=== PATIENT | male | born 1940 | race Caucasian/White ===

== ENCOUNTER 2020-06-01 07:52 | Outpatient (CLI) | payer OTHER, SELFPAY ==
[2020-06-01 08:40] LABS: Basophils Percent Auto 0.2 % (0.2-1.2); Eosinophils Absolute Auto 0.1 K/mm3 (0-0.3); Eosinophils Percent Auto 1.8 % (0-4.4); Hematocrit 37.5 % (42.0-52.0); Hemoglobin 12.2 g/dL (14.0-18.0); Immature Granulocyte Absolute 0.01 K/mm3 (0.00-0.031); Immature Granulocyte Percent A 0.2 % (0-0.5); Lymphocytes Absolute Auto 1.21 K/mm3 (0.9-3.2); Lymphocytes Percent Auto 24.2 % (18.3-44.2); Mean Corpuscular HGB Conc 32.5 g/dl (32-36); Mean Corpuscular Hemoglobin 30.9 pg (26-34); Mean Corpuscular Volume 94.9 fl (80-100); Mean Platelet Volume 9.8 fl (7.4-10.4); Monocytes Absolute Auto 0.5 K/mm3 (0.1-0.6); Neutrophils Absolute Auto 3.2 K/mm3 (1.3-6.7); Neutrophils Percent Auto 64.6 % (45.5-73.1); Platelet Count Result 277 k/mm3 (150-375); Red Blood Count 3.95 M/mm3 (4.6-6.20); Red Cell Distribution Width 11.9 % (11.5-14.5)
[2020-06-01 09:25] LABS: Alanine Aminotransferase 10 U/L (4-50); Albumin Level 4.4 g/dL (3.5-5.1); Alkaline Phosphatase 35 U/L (38-126); Anion Gap 8 mmol/L (8-16); Aspartate Amino Transferase 22 U/L (17-59); Bilirubin,Total 0.4 mg/dL (0.2-1.3); Blood Urea Nitrogen 25 mg/dL (9-20); Calcium 9.8 mg/dL (8.4-10.2); Carbon Dioxide 28 mmol/L (22-30); Chloride 103 mmol/L (98-107); Cholesterol 145 mg/dL (0-200); Estimated Glomerular Filt Rate 39; Glucose 98 mg/dL (75-110); HDL Direct 32 mg/dL; Potassium 4.6 mmol/L (3.4-5.0); Sodium 139 mmol/L (137-145); Triglycerides 120 mg/dL (<150)
[2020-06-01 09:48] LABS: LDL Cholesterol Direct 92 mg/dL
[2020-06-07 10:55] LABS: Vitamin D 1,25 (OH)2 Total 49 pg/mL (18-72); Vitamin D2 1,25 (OH)2 <8 pg/mL; Vitamin D3 1,25 (OH)2 49 pg/mL
== END 2020-06-01 07:53 | disposition home or self-care (01) ==
DX: I10 Essential (primary) hypertension (principal); E78.1 Pure hyperglyceridemia; E55.9 Vitamin D deficiency, unspecified
CPT/HCPCS: 36415; 80053; 80061; 82306; 82652; 84443; 85025

== ENCOUNTER 2020-11-29 09:10 | Outpatient (CLI) | payer OTHER, SELFPAY ==
[2020-11-29 09:26] LABS: Basophils Percent Auto 0.2 % (0.2-1.2); Eosinophils Absolute Auto 0.1 K/mm3 (0-0.3); Eosinophils Percent Auto 1.8 % (0-4.4); Hematocrit 39.9 % (42.0-52.0); Hemoglobin 13.1 g/dL (14.0-18.0); Immature Granulocyte Absolute 0.01 K/mm3 (0.00-0.031); Immature Granulocyte Percent A 0.2 % (0-0.5); Lymphocytes Absolute Auto 1.31 K/mm3 (0.9-3.2); Lymphocytes Percent Auto 23.2 % (18.3-44.2); Mean Corpuscular HGB Conc 32.8 g/dl (32-36); Mean Corpuscular Hemoglobin 30.9 pg (26-34); Mean Corpuscular Volume 94.1 fl (80-100); Mean Platelet Volume 9.4 fl (7.4-10.4); Monocytes Absolute Auto 0.5 K/mm3 (0.1-0.6); Monocytes Percent Auto 8.5 % (2.6-8.5); Neutrophils Absolute Auto 3.7 K/mm3 (1.3-6.7); Neutrophils Percent Auto 66.1 % (45.5-73.1); Platelet Count Result 235 k/mm3 (150-375); Red Blood Count 4.24 M/mm3 (4.6-6.20); Red Cell Distribution Width 12.2 % (11.5-14.5); White Blood Count 5.6 K/mm3 (4.5-10.0)
[2020-11-29 09:35] LABS: Alanine Aminotransferase 11 U/L (4-50); Albumin Level 4.7 g/dL (3.5-5.1); Alkaline Phosphatase 30 U/L (38-126); Anion Gap 7 mmol/L (8-16); Aspartate Amino Transferase 29 U/L (17-59); Bilirubin,Total 0.6 mg/dL (0.2-1.3); Blood Urea Nitrogen 16 mg/dL (9-20); Calcium 10.1 mg/dL (8.4-10.2); Carbon Dioxide 28 mmol/L (22-30); Chloride 103 mmol/L (98-107); Cholesterol 156 mg/dL (0-200); Estimated Glomerular Filt Rate 39; Glucose 99 mg/dL (75-110); HDL Direct 37 mg/dL; Potassium 4.7 mmol/L (3.4-5.0); Sodium 138 mmol/L (137-145); Triglycerides 127 mg/dL (<150)
[2020-11-29 09:46] LABS: LDL Cholesterol Direct 98 mg/dL
[2020-12-03 00:15] LABS: Vitamin D 1,25 (OH)2 Total 48 pg/mL (18-72); Vitamin D2 1,25 (OH)2 <8 pg/mL; Vitamin D3 1,25 (OH)2 48 pg/mL
== END 2020-11-29 09:11 | disposition home or self-care (01) ==
DX: E78.1 Pure hyperglyceridemia (principal); E55.9 Vitamin D deficiency, unspecified; I10 Essential (primary) hypertension
CPT/HCPCS: 36415; 80053; 80061; 82652; 84443; 85025

== ENCOUNTER 2021-12-21 10:07 | Outpatient (CLI) | payer OTHER, SELFPAY ==
--- NOTE | ~2021-12-21 | US_ITS ---
US renal BI 12/21/2021 10:50 Procedure: Realtime transabdominal ultrasound of the kidneys and bladder. Indication: Chronic kidney disease Comparison: No prior studies for comparison. Findings: Renal echotexture is normal bilaterally without hydronephrosis, contour deforming mass or r enal calculus. The right kidney measures 10.8 cm and left kidney measures 11.4 cm. Bladder within no rmal limits. There is a cyst in the upper pole of the right kidney measuring up to 10 cm. Incidental note is made of gallstones. Impression: 1: Right renal cyst measuring 10 cm. 2: Cholelithiasis. Reviewed, dictated and finalized at location A. Impression: 1: Right renal cyst measuring 10 cm. 2: Cholelithiasis.
== END 2021-12-21 10:08 | disposition home or self-care (01) ==
PROVIDERS: PCP Internal Medicine; Visit Provider Internal Medicine Nephrology
DX: N18.32 Chronic kidney disease, stage 3b (principal); K80.20 Calculus of gallbladder without cholecystitis without obstruction; N28.1 Cyst of kidney, acquired
CPT/HCPCS: 76775

== ENCOUNTER 2022-10-16 14:39 | Outpatient (CLI) | payer OTHER, SELFPAY ==
[2022-10-16 15:44] LABS: Hematocrit 38.6 % (42.0-52.0); Hemoglobin 12.6 g/dL (14.0-18.0); Mean Corpuscular HGB Conc 32.6 g/dl (32-36); Mean Corpuscular Volume 95.1 fl (80-100); Mean Platelet Volume 10.3 fl (7.4-10.4); Platelet Count Result 214 k/mm3 (150-375); Red Blood Count 4.06 M/mm3 (4.6-6.20); Red Cell Distribution Width 12.1 % (11.5-14.5)
[2022-10-16 15:54] LABS: Albumin Level 4.5 g/dL (3.5-5.1); Anion Gap 5 mmol/L (8-16); Blood Urea Nitrogen 23 mg/dL (9-20); Calcium 9.5 mg/dL (8.4-10.2); Carbon Dioxide 29 mmol/L (22-30); Chloride 103 mmol/L (98-107); Estimated Glomerular Filt Rate 34; Glucose 121 mg/dL (65-110); Phosphorus 3.4 mg/dL (2.5-4.5); Potassium 4.6 mmol/L (3.4-5.0); Sodium 137 mmol/L (137-145)
[2022-10-16 16:06] LABS: Parathyroid Intact 64.3 pg/mL (7.5-53.5)
[2022-10-16 17:07] LABS: Total Protein Urine Random 29 mg/dL
== END 2022-10-16 14:40 | disposition home or self-care (01) ==
PROVIDERS: PCP Internal Medicine; Visit Provider Internal Medicine Nephrology
DX: N18.32 Chronic kidney disease, stage 3b (principal)
CPT/HCPCS: 36415; 80069; 82570; 83970; 84156; 85027

== ENCOUNTER 2023-04-24 08:32 | Outpatient (CLI) | payer OTHER, SELFPAY ==
[2023-04-24 09:27] LABS: Albumin Level 4.3 g/dL (3.5-5.1); Anion Gap 8 mmol/L (8-16); Blood Urea Nitrogen 18 mg/dL (9-20); Calcium 9.4 mg/dL (8.4-10.2); Carbon Dioxide 26 mmol/L (22-30); Chloride 104 mmol/L (98-107); Estimated Glomerular Filt Rate 36; Glucose 98 mg/dL (65-110); Phosphorus 2.8 mg/dL (2.5-4.5); Potassium 4.6 mmol/L (3.4-5.0); Sodium 138 mmol/L (137-145)
[2023-04-24 09:39] LABS: Parathyroid Intact 61.3 pg/mL (7.5-53.5)
[2023-04-24 09:42] LABS: Creatinine Urine 84.9 mg/dL; Total Protein Urine Random 15 mg/dL; Ur Ttl Prot Creatinine Ratio 0.18 mg/mg (0-0.20)
[2023-04-24 10:09] LABS: Vitamin D 25 Hydroxy 62.7 ng/mL
== END 2023-04-24 08:33 | disposition home or self-care (01) ==
PROVIDERS: PCP Internal Medicine; Visit Provider Internal Medicine Nephrology
DX: N18.32 Chronic kidney disease, stage 3b (principal); E21.1 Secondary hyperparathyroidism, not elsewhere classified
CPT/HCPCS: 36415; 80069; 82306; 82570; 83970; 84156

== ENCOUNTER 2023-10-19 09:29 | Outpatient (CLI) | payer OTHER, SELFPAY ==
[2023-10-19 13:32] LABS: Basophils Percent Auto 0.2 % (0.2-1.2); Eosinophils Percent Auto 0.7 % (0-4.4); Hematocrit 42.4 % (42.0-52.0); Hemoglobin 13.6 g/dL (14.0-18.0); Immature Granulocyte Absolute 0.01 K/mm3 (0.00-0.031); Immature Granulocyte Percent A 0.2 % (0-0.5); Lymphocytes Absolute Auto 0.95 K/mm3 (0.9-3.2); Lymphocytes Percent Auto 17.7 % (18.3-44.2); Mean Corpuscular HGB Conc 32.1 g/dl (32-36); Mean Corpuscular Hemoglobin 31.2 pg (26-34); Mean Corpuscular Volume 97.2 fl (80-100); Mean Platelet Volume 10.7 fl (7.4-10.4); Monocytes Absolute Auto 0.5 K/mm3 (0.1-0.6); Monocytes Percent Auto 8.7 % (2.6-8.5); Neutrophils Absolute Auto 3.9 K/mm3 (1.3-6.7); Neutrophils Percent Auto 72.5 % (45.5-73.1); Platelet Count Result 231 k/mm3 (150-375); Red Blood Count 4.36 M/mm3 (4.6-6.20); Red Cell Distribution Width 12.3 % (11.5-14.5); White Blood Count 5.4 K/mm3 (4.5-10.0)
[2023-10-19 13:51] LABS: Alanine Aminotransferase 15 U/L (6-50); Albumin Level 4.4 g/dL (3.5-5.1); Albumin Level 4.6 g/dL (3.5-5.1); Alkaline Phosphatase 39 U/L (38-126); Anion Gap 6 mmol/L (4-12); Anion Gap 7 mmol/L (4-12); Aspartate Amino Transferase 41 U/L (17-59); Bilirubin,Total 1.1 mg/dL (0.2-1.3); Blood Urea Nitrogen 22 mg/dL (9-20); Calcium 10.1 mg/dL (8.4-10.2); Carbon Dioxide 27 mmol/L (22-30); Chloride 105 mmol/L (98-107); Chloride 106 mmol/L (98-107); Cholesterol 137 mg/dL (0-200); Estimated Glomerular Filt Rate 34; Estimated Glomerular Filt Rate 36; Glucose 95 mg/dL (65-110); Glucose 96 mg/dL (65-110); HDL Direct 38 mg/dL; Phosphorus 2.6 mg/dL (2.5-4.5); Potassium 4.6 mmol/L (3.4-5.0); Sodium 139 mmol/L (137-145); Triglycerides 80 mg/dL (<150)
[2023-10-19 14:02] LABS: LDL Cholesterol Direct 87 mg/dL
[2023-10-19 14:04] LABS: Potassium 4.6 mmol/L (3.4-5.0)
[2023-10-19 14:12] LABS: Creatinine Urine 135.2 mg/dL; Total Protein Urine Random 27 mg/dL
== END 2023-10-19 09:30 | disposition home or self-care (01) ==
LOC: ANHGOSHLAB 09:30
PROVIDERS: Internal Medicine Nephrology; Nurse Practitioner; PCP Internal Medicine; Visit Provider Internal Medicine
DX: E21.1 Secondary hyperparathyroidism, not elsewhere classified (principal); N18.32 Chronic kidney disease, stage 3b; K59.00 Constipation, unspecified; E78.5 Hyperlipidemia, unspecified
CPT/HCPCS: 36415; 80053; 80061; 80069; 82570; 84156; 85025

== ENCOUNTER 2024-02-08 08:50 | Outpatient (CLI) | payer OTHER, SELFPAY ==
[2024-02-08 18:44] LABS: Basophils Percent Auto 0.2 % (0.2-1.2); Eosinophils Absolute Auto 0.1 K/mm3 (0-0.3); Eosinophils Percent Auto 1.2 % (0-4.4); Hemoglobin 12.3 g/dL (14.0-18.0); Immature Granulocyte Absolute 0.01 K/mm3 (0.00-0.031); Immature Granulocyte Percent A 0.2 % (0-0.5); Lymphocytes Absolute Auto 0.98 K/mm3 (0.9-3.2); Lymphocytes Percent Auto 19.4 % (18.3-44.2); Mean Corpuscular HGB Conc 31.5 g/dl (32-36); Mean Corpuscular Hemoglobin 31.1 pg (26-34); Mean Corpuscular Volume 98.5 fl (80-100); Mean Platelet Volume 10.8 fl (7.4-10.4); Monocytes Absolute Auto 0.4 K/mm3 (0.1-0.6); Monocytes Percent Auto 8.3 % (2.6-8.5); Neutrophils Absolute Auto 3.6 K/mm3 (1.3-6.7); Neutrophils Percent Auto 70.7 % (45.5-73.1); Platelet Count Result 231 k/mm3 (150-375); Red Blood Count 3.96 M/mm3 (4.6-6.20); Red Cell Distribution Width 11.9 % (11.5-14.5); White Blood Count 5.1 K/mm3 (4.5-10.0)
[2024-02-08 19:01] LABS: Total Protein Urine Random 12 mg/dL; Ur Ttl Prot Creatinine Ratio 0.18 mg/mg (0-0.20)
[2024-02-08 19:04] LABS: Alanine Aminotransferase 10 U/L (6-50); Albumin Level 4.4 g/dL (3.5-5.1); Alkaline Phosphatase 37 U/L (38-126); Anion Gap 9 mmol/L (4-12); Aspartate Amino Transferase 33 U/L (17-59); Bilirubin,Total 0.8 mg/dL (0.2-1.3); Blood Urea Nitrogen 23 mg/dL (9-20); Calcium 9.9 mg/dL (8.4-10.2); Carbon Dioxide 27 mmol/L (22-30); Chloride 101 mmol/L (98-107); Cholesterol 128 mg/dL (0-200); Estimated Glomerular Filt Rate 36; Glucose 92 mg/dL (65-110); HDL Direct 38 mg/dL; Magnesium 1.8 mg/dL (1.6-2.3); Potassium 4.8 mmol/L (3.4-5.0); Sodium 137 mmol/L (137-145); Triglycerides 74 mg/dL (<150)
[2024-02-08 19:11] LABS: Parathyroid Intact 47.3 pg/mL (7.5-53.5)
[2024-02-08 19:15] LABS: LDL Cholesterol Direct 80 mg/dL
[2024-02-08 19:23] LABS: Vitamin D 25 Hydroxy 54.8 ng/mL
== END 2024-02-08 08:51 | disposition home or self-care (01) ==
PROVIDERS: Clinical Nurse Specialist; Internal Medicine Nephrology; PCP Internal Medicine; Visit Provider Nurse Practitioner
DX: E78.5 Hyperlipidemia, unspecified (principal); N18.32 Chronic kidney disease, stage 3b; E21.1 Secondary hyperparathyroidism, not elsewhere classified; I48.91 Unspecified atrial fibrillation
CPT/HCPCS: 36415; 80053; 80061; 82306; 82570; 83735; 83970; 84156; 84443; 85025

== ENCOUNTER 2024-03-19 08:51 | Outpatient (CLI) | payer OTHER, SELFPAY ==
--- NOTE | 2024-03-19 09:18 | ECHO_ITS ---
Patient Info Name: Dhruv Dugan Age: 84 years : 1940 Gender: Male Ht: 72 in Wt: 220 lbs BSA: 2.27 m2 HR: 69 bpm BP: 142 / 74 mmHg Heart Rhythm: Atrial Fibrillation Technical Quality: Good Exam Date: 03/19/2024 9:28 AM Exam Location: Echo Lab Patient Status: Outpatient Admit Date: 03/19/2024 Staff Ordering Physician: Fabienne Mcguire Office Support Specialist: Jessica Long RDCS Attending Provider: Fabienne Mcguire Referring Physician: Maynor SOFIA; Exam Type: CA echo doppler color flow Study Info Indications - Afib R55 - Syncope and collapse Complete two-dimensional, color flow and Doppler transthoracic echocardiogram is performed. Summary 1. Complete two-dimensional, color flow and Doppler transthoracic echocardiogram is performed. 2. Left ventricular chamber dimension is normal. 3. Left ventricular systolic function is normal, estimated at 60-65%. 4. The left ventricular diastolic function is abnormal. 5. E/e' 10 is mildly elevated. 6. Atrial fibrillation. 7. Left atrial chamber dimension is moderately enlarged. 8. Right atrial chamber dimension is moderately enlarged. 9. There is moderate aortic valve sclerosis. 10. There is mild mitral valve regurgitation. 11. There is mild tricuspid valve regurgitation. 12. No pulmonary hypertension, estimated pulmonary arterial systolic pressure is 36 mmHg. 13. There is trace pulmonic regurgitation. Left Ventricle E/e' 10 is mildly elevated. Left ventricular chamber dimension is normal. Left ventricular systolic function is normal, estimated at 60-65%. The left ventricular diastolic function is abnormal. Atrial fibrillation. Right Ventricle Right ventricular systolic function is normal and with normal TAPSE 1.9 cm. Right ventricular chamber dimension is normal. Left Atria Left atrial chamber dimension is moderately enlarged. Right Atria Right atrial chamber dimension is moderately enlarged. Aortic Valve The aortic valve is trileaflet. There is moderate aortic valve sclerosis. There is no aortic valve stenosis. There is no aortic valve regurgitation. Pulmonic Valve There is trace pulmonic regurgitation. Mitral Valve There is no mitral valve stenosis. There is mild mitral valve regurgitation. Tricuspid Valve There is mild tricuspid valve regurgitation. No pulmonary hypertension, estimated pulmonary arterial systolic pressure is 36 mmHg. Pericardium/Pleural There is no pericardial effusion. Inferior Vena Cava Normal inferior vena cava with >50% collapse upon inspiration consistent with normal right atrial pressure, 5 mmHg. Aorta The aortic root size at the sinus of Valsalva is normal. Left Ventricular Outflow Tract Name Value Normal LVOT 2D LVOT Diameter 2.1 cm LVOT Doppler LVOT Peak Gradient 2 mmHg LVOT Mean Gradient 1 mmHg LVOT VTI 16 cm LVOT VTI/AV VTI Ratio 0.6 LVOT Stroke Volume 55 ml LVOT CO 2.9 l/min LVOT CI 1.3 l/min/m2 Pulmonic Valve
--- NOTE | 2024-04-03 16:03 | WPDHOLTEREM ---
Holter/Event Monitor Holter/Event Monitor Date of procedure: 03/19/24 Holter/Event Procedure: 48 Hr Holter Monitor Indications: Atrial fibrillation Conclusion: 1. 48 hour holter monitor on 03/19/24. 2. Underlying rhythm is atrial fibrillation, HR range 33-114 bpm; average 64 bpm. HR at 33 bpm was at 01:27. 3. There are no other supraventricular arrhythmias. 4. There are 81 ventricular premature complexes and 3 ventricular trigeminy. No ventricular tachycardia. 5. There is 1 episode of pause greater than 2 seconds at 3.7 seconds at 02:50. 6. Patient reports symptoms of dizziness which demonstrate atrial fibrillation, HR range 57-90 bpm.
== END 2024-03-19 08:52 | disposition home or self-care (01) ==
LOC: ANHCARD 08:52
PROVIDERS: PCP Internal Medicine; Visit Provider Clinical Nurse Specialist
DX: R55 Syncope and collapse (principal); I48.91 Unspecified atrial fibrillation; I08.3 Combined rheumatic disorders of mitral, aortic and tricuspid valves
CPT/HCPCS: 36415; 85610; 93225; 93226; 93306

== ENCOUNTER 2024-03-19 08:52 | Outpatient (CLI) | payer OTHER, SELFPAY ==
[2024-03-19 09:22] LABS: INR 3.6; Prothrombin Time 36.9 Seconds (11.1-14.7)
== END 2024-03-19 08:53 | disposition home or self-care (01) ==
LOC: ANHLAB 08:55
PROVIDERS: PCP Internal Medicine; Visit Provider Internal Medicine Cardiovascular Disease
DX: I48.91 Unspecified atrial fibrillation (principal)
CPT/HCPCS: 36415; 85610

== ENCOUNTER 2024-03-29 08:41 | Observation (INO) | payer OTHER, SELFPAY ==
[2024-03-29] VITALS (23 sets, daily range): BP systolic 113–154; BP diastolic 45–101; PULSE 63–84; RESP 14–22; TEMP 36.4–36.8; O2SAT 94–100; BMI 26.4
--- NOTE | ~2024-03-29 | MR_ITS ---
MR brain/brain stem wo con Ordering provider: Jose Roberto Cabrera MD History: 84 years Male with . vertigo . Comparison: CT head performed yesterday. Technique: MRI brain was performed without contrast. FINDINGS: BONES: Normal. CRANIOCERVICAL JUNCTION: normal. Possible disc protrusion at the level of C3-C4 with indentation of the spinal cord. MRI of the cervic al spine is advised. PITUITARY: Normal. MAJOR INTRACRANIAL VESSELS: Normal flow void. OPTIC NERVES AND CRANIAL NERVES VII AND VIII COMPLEXES: Grossly normal. BRAIN PARENCHYMA AND CSF SPACES: Mild diffuse cortical atrophy. Scattered T2 and FLAIR hyperintense signal areas are noted with largest one seen in the medial aspect of the left cerebellar hemisphere. Otherwise, The brainstem and cerebellum are normal. No acute or chronic intracranial hemorrhage. No extra axial fluid collections. Diffusion weighted and ADC mapping images reveal no recent ischemia. N o midline shift or mass effect. PARANASAL SINUSES: Normal. MASTOIDS: Normal SUPERFICIAL/SURROUNDING SOFT TISSUES: Normal. IMPRESSION: 1. No acute intracranial process. 2. Left cerebellar hyperintense signal seen in the medial aspect on the FLAIR weighted images. Follo w-up advised. 3. Mild brain atrophy. Reviewed, dictated and finalized at location A. IMPRESSION: 1. No acute intracranial process. 2. Left cerebellar hyperintense signal seen in the medial aspect on the FLAIR weighted images. Follow-up advised. 3. Mild brain atrophy.
--- NOTE | ~2024-03-29 | CT_ITS ---
EXAMINATION: CTA brain carotid DATE: 03/29/2024 10:18 INDICATION: Dizziness. TECHNIQUE: Computed tomographic angiography (CTA) of the head was performed without and with 100 mL O mnipaque-350 intravenous contrast. CTA of the neck was performed with intravenous contrast. Automated exposure control and iterative reconstruction technique were employed. The dose-length product was 1 844.32 mGy-cm. Maximum intensity projection and volume rendered 3D-reconstructions were created by jadyn tamez technologist on a separate workstation. COMPARISON: None. FINDINGS: HEAD CTA: There is no intracranial hemorrhage, acute infarction, or abnormal intracranial mass lesion . The ventricles are normal in size. There are likely changes of ocular lens replacement surgeries. T here is mild mucosal thickening in the paranasal sinuses. The mastoid air cells are normal. The verte bral arteries are codominant. There is no significant stenosis of basilar artery or the posterior cer ebral arteries. There is no significant stenosis of the intracranial internal carotid arteries or ant erior or middle cerebral arteries. Anterior communicating artery is normal. The posterior communicati ng arteries are normal. There is no aneurysm. NECK CTA: There is mild emphysema. There are no pathologically enlarged lymph nodes. There is no sign ificant stenosis of the vertebral arteries. There is plaque in the proximal internal carotid arteries . There is 0% stenosis of the proximal right internal carotid artery relative to normal distal artery lumen diameter (NASCET criteria). There is 0% stenosis of the proximal left internal carotid artery relative to normal distal artery lumen diameter. There is severe cervical spondylosis. IMPRESSION: 1. Normal brain. 2. No aneurysm or significant intracranial arterial stenosis. 3. 0% stenosis of the proximal internal carotid arteries relative to normal distal artery lumen diame ters (NASCET criteria). Reviewed, dictated and finalized at location A. IMPRESSION: 1. Normal brain. 2. No aneurysm or significant intracranial arterial stenosis. 3. 0% stenosis of the proximal internal carotid arteries relative to normal dis joss artery lumen diameters (NASCET criteria).
--- NOTE | 2024-03-29 09:06 | ECG_ITS ---
Test Date: 2024-03-29 09:03:09 Measurements Intervals [place] Rate: 62 P: 0 PA: 0 QRS: 63 QRSD: 107 T: 49 QT: 388 QTc: 397 Interpretive Statements ATRIAL FIBRILLATION INCOMPLETE RIGHT BUNDLE BRANCH BLOCK DELAYED PRECORDIAL R/S TRANSITION BORDERLINE ST ABNORMALITY- ANTEROLATERAL LEADS BASELINE ARTIFACT- I, II, III, AVR, AVL, AVF, V1-V4 ABNORMAL ECG No previous ECG available for comparison Electronically Signed On 03-29-2024 10:40:06 CDT by Angel Carvalho D.O.
[2024-03-29 09:20] LABS: Basophils Percent Auto 0.2 % (0.2-1.2); Eosinophils Absolute Auto 0.1 K/mm3 (0-0.3); Eosinophils Percent Auto 1.6 % (0-4.4); Hematocrit 39.9 % (42.0-52.0); Immature Granulocyte Absolute 0.02 K/mm3 (0.00-0.031); Immature Granulocyte Percent A 0.5 % (0-0.5); Lymphocytes Absolute Auto 0.75 K/mm3 (0.9-3.2); Lymphocytes Percent Auto 17.3 % (18.3-44.2); Mean Corpuscular HGB Conc 32.6 g/dl (32-36); Mean Corpuscular Hemoglobin 31.2 pg (26-34); Mean Corpuscular Volume 95.7 fl (80-100); Mean Platelet Volume 10.1 fl (7.4-10.4); Monocytes Absolute Auto 0.4 K/mm3 (0.1-0.6); Monocytes Percent Auto 8.3 % (2.6-8.5); Neutrophils Absolute Auto 3.1 K/mm3 (1.3-6.7); Neutrophils Percent Auto 72.1 % (45.5-73.1); Platelet Count Result 209 k/mm3 (150-375); Red Blood Count 4.17 M/mm3 (4.6-6.20); Red Cell Distribution Width 12.1 % (11.5-14.5); White Blood Count 4.3 K/mm3 (4.5-10.0)
[2024-03-29] MEDS: LACTATED RINGERS 1,000 ML 999 ML IV CONT (09:20)
[2024-03-29] MEDS: MECLIZINE HCL 25 MG TABLET PO ×2 (09:21→18:12)
[2024-03-29 09:32] LABS: Alanine Aminotransferase 12 U/L (6-50); Albumin Level 4.5 g/dL (3.5-5.1); Alkaline Phosphatase 37 U/L (38-126); Anion Gap 9 mmol/L (4-12); Aspartate Amino Transferase 27 U/L (17-59); Bilirubin,Total 0.6 mg/dL (0.2-1.3); Blood Urea Nitrogen 22 mg/dL (9-20); Calcium 9.7 mg/dL (8.4-10.2); Carbon Dioxide 26 mmol/L (22-30); Chloride 103 mmol/L (98-107); Estimated CRCL calculation 33 ml/min; Estimated Glomerular Filt Rate 41; Glucose 107 mg/dL (65-110); Potassium 4.4 mmol/L (3.4-5.0); Sodium 138 mmol/L (137-145)
[2024-03-29 09:50] LABS: Troponin I < 0.012 ng/mL (0.000-0.034)
[2024-03-29] MEDS: HYDROGEN PEROXIDE 3% SOLN(*SP) 473 ML BOTTLE (09:51)
[2024-03-29 12:31] LABS: Troponin I < 0.012 ng/mL (0.000-0.034)
--- NOTE | 2024-03-29 14:23 | ADMGEN ---
This patient, Dhruv Dugan, was admitted to 2 Medical Room 261-01. Patient/family oriented to hospital policies and general routines including ID bracelet, bed and alarms, visiting hours, pain management, procedures, bathroom and other care routines, personal items, smoking policy, room service/diet, and visiting hours. Information on how to activate the Rapid Response Team has been discussed. Patient/Family are encouraged to report perceived risks to care and to ask questions if they do not understand what they are told or what they should do. report received from Victor Manuel THOMAS
--- NOTE | 2024-03-29 14:35 | PM.IMHP ---
H&P: HPI History of Present Illness Date/Time: 03/29/24 15:00 Chief Complaint: Dizzy. Narrative: This is a pleasant 84-year-old male with chronic obstructive pulmonary disease, hyperlipidemia, diastolic dysfunction, chronic kidney disease stage 3, and fairly recent diagnosis of atrial fibrillation for which he was started on warfarin on 03/10/2024 who presented to the emergency department via private vehicle from home for evaluation of dizziness. The patient provides the following history. He reports having several episodes of dizziness over the past couple of months. 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 Another occurred when he was walking across the street to bring tomatoes to his neighbors. He says that he suddenly gets dizzy causing him to lose his balance however he goes on to say that he feels lightheaded as well. This morning while trying to get out of bed he felt very dizzy and heavy, as though he was being pushed backwards, and he fell back into bed. He was eventually able to get himself up in into the kitchen using ramirez and for sure to help steady himself. He then called a neighbor who brought him to the ED for evaluation. While in the waiting room he had recurrent dizziness associated with nausea and 1 episode of emesis. His symptoms seemed to be worse with certain positions and are relieved at rest. He denies vision changes, aural fullness, tinnitus, facial droop, difficulty speaking and swallowing, focal weakness, paresthesias, syncope, chest pain, pleuritic pain, and shortness of breath. In the ED: He was afebrile on arrival with a blood pressure of 154/101 and a heart rate of 62 (EKG showed atrial fibrillation). Labs were significant for WBC count of 4.3, RBC 4.17, hemoglobin 13.0, platelet 209, BUN 22, creatinine 1.60, troponin less than 0.012. CTA of the head and neck showed a normal brain with no aneurysm or significant intracranial arterial stenosis and 0% stenosis of the proximal internal carotid arteries. He was given meclizine 25 mg p.o. and 1 L lactated Ringer's and is being admitted for further treatment and evaluation. Review of Systems Review of Systems: 12 systems were reviewed and are negative except for as per HPI. [facility] Past Medical History Medical History Arthritis Atrial fibrillation Chronic anticoagulation Chronic kidney disease, stage 3b Chronic obstructive pulmonary disease Diastolic dysfunction Hyperlipidemia Statin intolerant. Irritable bowel syndrome Skin cancer Surgical History Surgical History History of hemorrhoidectomy History of tonsillectomy Family History Family History Father Family history of cardiovascular disease Mother Family history of cardiovascular disease Diabetes mellitus Hypertension Social History Social History Social History: Power of tax attorney: Cassius Dugan. Code status: Full code. Smoking packs per day: 1 Smoking cigarettes per day: 20.0 Years smoked: 45 Smoking pack-years: 45.00 Smoking status: Former smoker Tobacco type: cigarettes Second hand tobacco smoke exposure: Yes Alcohol intake: former Alcohol use details: Quit drinking in 1989. Substance use: never Substance use type: does not use Do You Feel Safe in your Home?: Yes Lack of Transportation: No Lack of Food: Never True Current Housing: I Have Housing Concerned About Future Housing: No Difficulty Paying Gas/Electric Bills: No Difficulty Paying for Meds: No Currently Unemployed: No Education: High School Diploma/GED Difficulty w/ Childcare or Family Care: No Spiritual care concerns: No Meds Home Medications and Allergies Home Medications Medication Instructions Recorded Con
[2024-03-29 15:22] LABS: Prothrombin Time 65.9 Seconds (11.1-14.7)
[2024-03-29 15:38] LABS: INR 7.9
--- NOTE | 2024-03-29 20:19 | ED.DIZZY ---
HPI - Dizziness General Chief Complaint: Dizziness Stated Complaint: dizzy Time Seen by Provider: 03/29/24 09:17 History of Present Illness HPI Narrative: This is an 84-year-old male with a past medical history significant for COPD, hypertension, hyperlipidemia, chronic kidney disease and recently diagnosed atrial fibrillation on warfarin. Patient states for last several weeks he has been having dizziness described as a room spinning sensation even while he is at rest. Today he started having worsening dizziness sensation associated nausea and vomiting to the severity. This caused him to fall without any head trauma or injury. Patient was otherwise in his normal state of health. He has been taking his medications as described. States he has had a history of dizziness before but has never been evaluated by ENT or any kind of Neurology according to him. Related Data Home Medications Medication Instructions Recorded Confirmed niacin 500 mg tablet 500 mg PO DAILY 12/02/21 03/29/24 omega-3 acid ethyl esters 1 gram 1 cap PO DAILY 12/02/21 03/29/24 capsule polyethylene glycol 3350 17 gram 17 g PO DAILY 03/29/24 03/29/24 oral powder packet (Miralax) Allergies Allergy/AdvReac Type Severity Reaction Status Date / Time Cjbdgju-DGN-TeO Reductase Allergy Unknown Unknown Verified 03/10/24 08:55 Inhibitor [Ounhezn-Pal-Hon Reductase Inhibitor] Review of Systems Review of Systems: As reviewed above in HPI [facility] Past Medical History Medical History Arthritis Atrial fibrillation Chronic anticoagulation Chronic kidney disease, stage 3b Chronic obstructive pulmonary disease Diastolic dysfunction Hyperlipidemia Statin intolerant. Irritable bowel syndrome Skin cancer Surgical History Surgical History History of hemorrhoidectomy History of tonsillectomy Family History Family History Father Family history of cardiovascular disease Mother Family history of cardiovascular disease Diabetes mellitus Hypertension Social History Social History Social History: Power of family law attorney: Cassius Dugan. Code status: Full code. Smoking packs per day: 1 Smoking cigarettes per day: 20.0 Years smoked: 45 Smoking pack-years: 45.00 Smoking status: Former smoker Tobacco type: cigarettes Second hand tobacco smoke exposure: Yes Alcohol intake: former Alcohol use details: Quit drinking in 1989. Substance use: never Substance use type: does not use Do You Feel Safe in your Home?: Yes Lack of Transportation: No Lack of Food: Never True Current Housing: I Have Housing Concerned About Future Housing: No Difficulty Paying Gas/Electric Bills: No Difficulty Paying for Meds: No Currently Unemployed: No Education: High School Diploma/GED Difficulty w/ Childcare or Family Care: No Spiritual care concerns: No Exam Narrative: GENERAL: [Well-appearing, well-nourished, and in no acute distress.] HEAD: [Normocephalic, atraumatic.] EYES: [PERRLA and EOMI.] ENT: Nares clear, no rhinorrhea or epistaxis. Mucous membranes moist. NECK: Supple. CHEST: [Clear to auscultation. No respiratory distress.] HEART: Irregular rate and rhythm. No murmur heard. [Normal peripheral pulses.] Warm extremities ABDOMEN: [Soft, nondistended], [nontender], [No rigidity or guarding] EXTREMITIES: Normal range of motion. [No edema.] SKIN: Warm, dry, no rash. NEURO: [No focal deficits]. Alert and oriented [x3.] Awake alert oriented without any upper or lower extremity ataxia on my examination. No nystagmus. Describes vertigo while looking to the left more so than the right. And some my questions appropriately. PSYCH: [Normal mood and affect.] Cou
[2024-03-30] VITALS (16 sets, daily range): BP systolic 106–146; BP diastolic 57–90; PULSE 57–86; RESP 16–20; TEMP 36.2–36.8; O2SAT 98–100
[2024-03-30 05:16] LABS: Anion Gap 7 mmol/L (4-12); Blood Urea Nitrogen 18 mg/dL (9-20); Calcium 9.5 mg/dL (8.4-10.2); Carbon Dioxide 27 mmol/L (22-30); Chloride 101 mmol/L (98-107); Estimated CRCL calculation 35 ml/min; Estimated Glomerular Filt Rate 44; Glucose 91 mg/dL (65-110); Magnesium 1.9 mg/dL (1.6-2.3); Potassium 4.3 mmol/L (3.4-5.0); Sodium 135 mmol/L (137-145)
[2024-03-30] MEDS: lisinopriL 20 MG TABLET 40 MG PO (08:41)
[2024-03-30] MEDS: polyethylene glycoL 3350 17 GM POWD.PACK PO (08:41)
[2024-03-30] MEDS: OMEGA 3 POLYUNSAT FATTY ACIDS 1 GM CAP PO (08:42)
[2024-03-30] MEDS: MECLIZINE HCL 25 MG TABLET PO ×3 (08:42→17:39)
[2024-03-30] MEDS: FENOFIBRATE NANOCRYSTALLIZED 145 MG TABLET PO (08:42)
[2024-03-30] MEDS: amLODIPine BESYLATE 5 MG TABLET PO (08:42)
[2024-03-30] MEDS: CHOLECALCIFEROL 1,000 UNITS TABLET 1000 UNITS PO (08:42)
--- NOTE | 2024-03-30 10:29 | PM.IMPN ---
Progress Note: A&P Assessment and Plan (1) Vertigo: Code(s): R42 - Dizziness and giddiness Status: Acute Assessment and Plan: 03/30/24: continue meclizine 1 L of LR given PT ordered Plan for MRI of the brain and brain stem Neurology consulted Continue to check orthostatic blood pressures Continue Neuro checks Continuous cardiac monitoring. Continue fall precautions (2) Supratherapeutic INR: Code(s): R79.1 - Abnormal coagulation profile Status: Acute Assessment and Plan: 03/30/24: INR 7.9 Coumadin currently on hold continue to trend (3) Atrial fibrillation: Code(s): I48.91 - Unspecified atrial fibrillation Status: Chronic Assessment and Plan: 03/30/24: not on rate control medication Coumadin currently on hold due to supratherapeutic INR (4) Hyperlipidemia: Code(s): E78.5 - Hyperlipidemia, unspecified Status: Chronic Assessment and Plan: 03/30/24: continue fenofibrate and omega-3 (5) Hypertension: Code(s): I10 - Essential (primary) hypertension Status: Chronic Assessment and Plan: 03/30/24: blood pressure ranging 128/90 to 146/75 continue amlodipine and lisinopril Time Spent With Patient Time with patient: Greater than 35 minutes Subjective Date/time seen: 03/30/24 10:29 Interval history: Interval history: This is an 84-year-old male who presented to the hospital on 03/29/2024 for evaluation of dizziness. He was recently diagnosed with atrial fibrillation and was started on Coumadin on 02/1924. Workup in the hospital included a head and neck CTA which showed a normal brain, no aneurysm or significant intracranial arterial stenosis, 0% stenosis of the proximal internal carotid arteries. Initial labs shown a white blood cell count of 4.3, RBC 4.17, hemoglobin 13.0, INR 7.9, PT 65.9, creatinine 1.6, EGFR 41, alk-phos 37, troponin negative x2. Last echo on 03/19/2024 was reviewed and revealed normal LV systolic function with an estimated EF of 60-65%, diastolic dysfunction, moderate aortic valve sclerosis. EKG yesterday showed AFib with a rate of 62 and right bundle branch block, QTC 397. Patient was given a dose of meclizine in the ED. Subjective: 03/30/24: Patient denies any fever, chills, nausea, vomiting, diarrhea, abdominal pain, chest pain, or shortness of breath. He states that the dizziness has subsided. He denies any headache or vision changes. Review of Systems Review of Systems: All systems reviewed & are unremarkable except as noted in HPI and below Constitutional: Constitutional: Reports as per HPI and Reports no additional constitutional complaints Eyes: Eyes: Reports as per HPI and Reports no additional eye complaints ENT: Reports system reviewed and no additional complaints, except as documented and Reports as per HPI Cardiovascular: Cardiovascular: Reports as per HPI and Reports no additional cardiovascular complaints Respiratory: Respiratory: Reports as per HPI and Reports no additional respiratory complaints Gastrointestinal: Gastrointestinal: Reports as per HPI and Reports no additional gastrointestinal complaints Genitourinary: Genitourinary: Reports no additional male genitourinary complaints and Reports as per HPI Musculoskeletal: Musculoskeletal: Reports no additional musculoskeletal complaints and Reports as per HPI Integumentary/Breasts: Skin/Breast: Reports system reviewed and no additional complaints, except as docu and Reports as per HPI Neurologic: Reports system reviewed and no additional complaints, except as documented and Reports as per HPI Psychiatric: Psychiatric: Reports no additional psychiatric complaints and Reports as per HPI Exam Narrative: General: In no acute distress, well nourished Head: atraumatic, no encephalopathy Eyes: EOMI, PERRLA, sclera clear ENT: moist mucous membranes, nasal passages clear, reports that his hearing is diminished in
--- NOTE | 2024-03-30 14:43 | WPDNEURCNPN ---
Assessment and Plan Assessment and plan (1) Vertigo: Code(s): R42 - Dizziness and giddiness Status: Acute (2) Atrial fibrillation: Code(s): I48.91 - Unspecified atrial fibrillation Status: Acute (3) Supratherapeutic INR: Code(s): R79.1 - Abnormal coagulation profile Status: Acute (4) Chronic anticoagulation: Code(s): Z79.01 - assisted (current) use of anticoagulants Status: Acute Plan Acute dizziness and vertigo being treated symptomatically .. Supratherapeutic INR with history of ongoing anticoagulation therapy for atrial fibrillation and finding of moderate aortic valve sclerosis on echocardiogram will be observed and treated while Coumadin is being withheld . Consult date: 03/30/24 HPI: Dhruv Dugan is a 84 year old male Admitted to the hospital through the emergency room with a complaint of being dizzy in addition to the ongoing history of 1. COPD 2. Hypertension 3. Hyperlipidemia 4. Chronic renal disease and 5. Atrial fibrillation with recent initiation of the anticoagulation therapy that is Coumadin. Patient has been experiencing recurrent dizziness over the last weeks described as spinning sensation associated with nausea and vomiting on the day of admission with no history of recent or remote trauma and with history that he has been taking the medication regularly, he is a former smoker, former alcohol intake, and on initial evaluation in the emergency room his vital signs were normal except blood pressure 154/101, routine lab studies were normal with INR of 7.9 and protime of 65.9 head neck CTA revealed no aneurysm no vascular occlusion, troponin were negative x2 his last echo on March 19, 2024 was normal with mild diastolic dysfunction and moderate aortic valve sclerosis but you EKG yesterday revealed atrial fibrillation. [facility] Past Medical History Medical History Arthritis Atrial fibrillation Chronic anticoagulation Chronic kidney disease, stage 3b Chronic obstructive pulmonary disease Diastolic dysfunction Hyperlipidemia Statin intolerant. Irritable bowel syndrome Skin cancer Surgical History Surgical History History of hemorrhoidectomy History of tonsillectomy Family History Family History Father Family history of cardiovascular disease Mother Family history of cardiovascular disease Diabetes mellitus Hypertension Social History Social History Social History: Power of cloth stretcher: Cassius Dugan. Code status: Full code. Smoking packs per day: 1 Smoking cigarettes per day: 20.0 Years smoked: 45 Smoking pack-years: 45.00 Smoking status: Former smoker Tobacco type: cigarettes Second hand tobacco smoke exposure: Yes Alcohol intake: former Alcohol use details: Quit drinking in 1989. Substance use: never Substance use type: does not use Do You Feel Safe in your Home?: Yes Lack of Transportation: No Lack of Food: Never True Current Housing: I Have Housing Concerned About Future Housing: No Difficulty Paying Gas/Electric Bills: No Difficulty Paying for Meds: No Currently Unemployed: No Education: High School Diploma/GED Difficulty w/ Childcare or Family Care: No Spiritual care concerns: No Meds Home Medications and Allergies Home Medications Medication Instructions Recorded Confirmed Type cholecalciferol (vitamin D3) 25 25 mcg PO DAILY #30 tabs 08/04/19 03/29/24 Rx mcg (1,000 unit) tablet niacin 500 mg tablet 500 mg PO DAILY 12/02/21 03/29/24 History omega-3 acid ethyl esters 1 gram 1 cap PO DAILY 12/02/21 03/29/24 History capsule fenofibrate nanocrystallized 145 145 mg PO DAILY #90 tabs 10/15/23 03/29/24 Rx mg tablet lisinopril 40 mg tablet 40 mg
[2024-03-30 15:48] LABS: Prothrombin Time 69.9 Seconds (11.1-14.7)
[2024-03-30 16:15] LABS: INR 8.5
[2024-03-30] MEDS: PHYTONADIONE 5 MG TABLET 10 MG PO (17:39)
[2024-03-31] VITALS (14 sets, daily range): BP systolic 90–136; BP diastolic 45–85; PULSE 59–96; RESP 17–18; TEMP 36.6–36.9; O2SAT 97–100
[2024-03-31 06:10] LABS: Basophils Percent Auto 0.2 % (0.2-1.2); Eosinophils Absolute Auto 0.2 K/mm3 (0-0.3); Eosinophils Percent Auto 3.5 % (0-4.4); Hemoglobin 12.9 g/dL (14.0-18.0); Immature Granulocyte Absolute 0.01 K/mm3 (0.00-0.031); Immature Granulocyte Percent A 0.2 % (0-0.5); Lymphocytes Absolute Auto 0.91 K/mm3 (0.9-3.2); Mean Corpuscular HGB Conc 32.3 g/dl (32-36); Mean Corpuscular Hemoglobin 31.2 pg (26-34); Mean Corpuscular Volume 96.6 fl (80-100); Mean Platelet Volume 10.4 fl (7.4-10.4); Monocytes Absolute Auto 0.5 K/mm3 (0.1-0.6); Monocytes Percent Auto 11.3 % (2.6-8.5); Neutrophils Absolute Auto 2.8 K/mm3 (1.3-6.7); Neutrophils Percent Auto 63.8 % (45.5-73.1); Platelet Count Result 212 k/mm3 (150-375); Red Blood Count 4.14 M/mm3 (4.6-6.20); Red Cell Distribution Width 12.1 % (11.5-14.5); White Blood Count 4.3 K/mm3 (4.5-10.0)
[2024-03-31 06:23] LABS: Alanine Aminotransferase 11 U/L (6-50); Alkaline Phosphatase 34 U/L (38-126); Anion Gap 8 mmol/L (4-12); Aspartate Amino Transferase 27 U/L (17-59); Bilirubin,Total 0.9 mg/dL (0.2-1.3); Blood Urea Nitrogen 20 mg/dL (9-20); Calcium 9.5 mg/dL (8.4-10.2); Carbon Dioxide 28 mmol/L (22-30); Chloride 100 mmol/L (98-107); Estimated CRCL calculation 31 ml/min; Estimated Glomerular Filt Rate 38; Glucose 87 mg/dL (65-110); Potassium 4.3 mmol/L (3.4-5.0); Sodium 136 mmol/L (137-145)
[2024-03-31] MEDS: FENOFIBRATE NANOCRYSTALLIZED 145 MG TABLET PO (09:26)
[2024-03-31] MEDS: CHOLECALCIFEROL 1,000 UNITS TABLET 1000 UNITS PO (09:26)
[2024-03-31] MEDS: polyethylene glycoL 3350 17 GM POWD.PACK PO (09:26)
[2024-03-31] MEDS: amLODIPine BESYLATE 5 MG TABLET PO (09:26)
[2024-03-31] MEDS: OMEGA 3 POLYUNSAT FATTY ACIDS 1 GM CAP PO (09:26)
[2024-03-31] MEDS: lisinopriL 20 MG TABLET 40 MG PO (09:26)
--- NOTE | 2024-03-31 09:36 | P.PNIM_ITS ---
Progress Note: A&P Assessment and Plan (1) Vertigo: Code(s): R42 - Dizziness and giddiness Status: Acute Assessment and Plan: 03/30/24: * continue meclizine * 1 L of LR given * PT ordered * Plan for MRI of the brain and brain stem * Neurology consulted * Continue to check orthostatic blood pressures * Continue Neuro checks * Continuous cardiac monitoring. * Continue fall precautions 03/31/24: * Continue meclizine * MRI of brain was negative for any acute intracranial process, left cerebellar hyperintense signal with the largest 1 seen in the medial aspect of the left cerebellar hemisphere, mild brain atrophy * Neurology following * continue neuro checks * continuous cardiac monitoring * continue fall precautions * continue PT (2) Supratherapeutic INR: Code(s): R79.1 - Abnormal coagulation profile Status: Acute Assessment and Plan: 03/30/24: * INR 7.9 * Coumadin currently on hold * continue to trend 03/31/24: * INR yesterday went up to 8.5 and was given a dose of vitamin K * today INR 2.0 today * Spoke with Dr. Carvalho who recommends restarting coumadin at 1mg and keep it there with follow up INR in 1 week. * Coumadin 1 mg ordered (3) Atrial fibrillation: Code(s): I48.91 - Unspecified atrial fibrillation Status: Chronic Assessment and Plan: 03/30/24: * not on rate control medication * Coumadin currently on hold due to supratherapeutic INR 03/31/24: * continue to hold Coumadin (4) Hyperlipidemia: Code(s): E78.5 - Hyperlipidemia, unspecified Status: Chronic Assessment and Plan: 03/30/24: * continue fenofibrate and omega-3 03/31/24: * no change to current treatment plan (5) Hypertension: Code(s): I10 - Essential (primary) hypertension Status: Chronic Assessment and Plan: 03/30/24: * blood pressure ranging 128/90 to 146/75 * continue amlodipine and lisinopril 03/31/24: * no change to current treatment plan Time Spent With Patient Time with patient: 25 - 35 minutes Subjective Date/time seen: 03/31/24 09:36 Interval history: Interval history: This is an 84-year-old male who presented to the hospital on 03/29/2024 for evaluation of dizziness. He was recently diagnosed with atrial fibrillation and was started on Coumadin on 02/1924. Workup in the hospital included a head and neck CTA which showed a normal brain, no aneurysm or significant intracranial arterial stenosis, 0% stenosis of the proximal internal carotid arteries. Initial labs shown a white blood cell count of 4.3, RBC 4.17, hemoglobin 13.0, INR 7.9, PT 65.9, creatinine 1.6, EGFR 41, alk-phos 37, troponin negative x2. Last echo on 03/19/2024 was reviewed and revealed normal LV systolic function with an estimated EF of 60-65%, diastolic dysfunction, moderate aortic valve sclerosis. EKG yesterday showed AFib with a rate of 62 and right bundle branch block, QTC 397. Patient was given a dose of meclizine in the ED. Subjective: 03/30/24: Patient denies any fever, chills, nausea, vomiting, diarrhea, abdominal pain, chest pain, or shortness of breath. He states that the dizziness has subsided. He denies any headache or vision changes. 03/31/24: Labs and imaging reviewed. Patient denies any new complaints today. Review of Systems Review of Systems: 12 systems were reviewed and are negativ e except for as per HPI. All systems reviewed & are unremarkable except as noted in HP
--- NOTE | 2024-03-31 09:36 | PM.IMPN ---
Progress Note: A&P Assessment and Plan (1) Vertigo: Code(s): R42 - Dizziness and giddiness Status: Acute Assessment and Plan: 03/30/24: continue meclizine 1 L of LR given PT ordered Plan for MRI of the brain and brain stem Neurology consulted Continue to check orthostatic blood pressures Continue Neuro checks Continuous cardiac monitoring. Continue fall precautions 03/31/24: Continue meclizine MRI of brain was negative for any acute intracranial process, left cerebellar hyperintense signal with the largest 1 seen in the medial aspect of the left cerebellar hemisphere, mild brain atrophy Neurology following continue neuro checks continuous cardiac monitoring continue fall precautions continue PT (2) Supratherapeutic INR: Code(s): R79.1 - Abnormal coagulation profile Status: Acute Assessment and Plan: 03/30/24: INR 7.9 Coumadin currently on hold continue to trend 03/31/24: INR yesterday went up to 8.5 and was given a dose of vitamin K today INR 2.[address] Carvalho who recommends restarting coumadin at 1mg and keep it there with follow up INR in 1 week. Coumadin 1 mg ordered (3) Atrial fibrillation: Code(s): I48.91 - Unspecified atrial fibrillation Status: Chronic Assessment and Plan: 03/30/24: not on rate control medication Coumadin currently on hold due to supratherapeutic INR 03/31/24: continue to hold Coumadin (4) Hyperlipidemia: Code(s): E78.5 - Hyperlipidemia, unspecified Status: Chronic Assessment and Plan: 03/30/24: continue fenofibrate and omega-3 03/31/24: no change to current treatment plan (5) Hypertension: Code(s): I10 - Essential (primary) hypertension Status: Chronic Assessment and Plan: 03/30/24: blood pressure ranging 128/90 to 146/75 continue amlodipine and lisinopril 03/31/24: no change to current treatment plan Time Spent With Patient Time with patient: 25 - 35 minutes Subjective Date/time seen: 03/31/24 09:36 Interval history: Interval history: This is an 84-year-old male who presented to the hospital on 03/29/2024 for evaluation of dizziness. He was recently diagnosed with atrial fibrillation and was started on Coumadin on 02/1924. Workup in the hospital included a head and neck CTA which showed a normal brain, no aneurysm or significant intracranial arterial stenosis, 0% stenosis of the proximal internal carotid arteries. Initial labs shown a white blood cell count of 4.3, RBC 4.17, hemoglobin 13.0, INR 7.9, PT 65.9, creatinine 1.6, EGFR 41, alk-phos 37, troponin negative x2. Last echo on 03/19/2024 was reviewed and revealed normal LV systolic function with an estimated EF of 60-65%, diastolic dysfunction, moderate aortic valve sclerosis. EKG yesterday showed AFib with a rate of 62 and right bundle branch block, QTC 397. Patient was given a dose of meclizine in the ED. Subjective: 03/30/24: Patient denies any fever, chills, nausea, vomiting, diarrhea, abdominal pain, chest pain, or shortness of breath. He states that the dizziness has subsided. He denies any headache or vision changes. 03/31/24: Labs and imaging reviewed. Patient denies any new complaints today. Review of Systems Review of Systems: 12 systems were reviewed and are negative except for as per HPI. All systems reviewed & are unremarkable except as noted in HPI and below Constitutional: Constitutional: Reports as per HPI and Reports no additional constitutional complaints Eyes: Eyes: Reports as per HPI and Reports no additional eye complaints ENT: Reports system reviewed and no additional complaints, except as documented and Reports as per HPI Cardiovascular: Cardiovascular: Reports as per HPI and Reports no additional cardiovascular complaints Respiratory: Respiratory: Reports as per HPI and Reports no additional respiratory complaints Gastrointestinal: Gastroi
[2024-03-31 10:15] LABS: Prothrombin Time 23.1 Seconds (11.1-14.7)
[2024-03-31] MEDS: MECLIZINE HCL 25 MG TABLET PO ×2 (10:45→17:57)
[2024-03-31 15:46] LABS: INR 1.7; Prothrombin Time 20.2 Seconds (11.1-14.7)
[2024-03-31] MEDS: WARFARIN (*PBKC) 1 MG TABLET PO (17:58)
[2024-04-01] VITALS (8 sets, daily range): BP systolic 107–122; BP diastolic 61–73; PULSE 44–80; RESP 18; TEMP 36.5; O2SAT 96–98
[2024-04-01 06:03] LABS: Eosinophils Absolute Auto 0.1 K/mm3 (0-0.3); Eosinophils Percent Auto 2.8 % (0-4.4); Hematocrit 36.3 % (42.0-52.0); Immature Granulocyte Absolute 0.01 K/mm3 (0.00-0.031); Immature Granulocyte Percent A 0.2 % (0-0.5); Lymphocytes Absolute Auto 1.02 K/mm3 (0.9-3.2); Lymphocytes Percent Auto 23.4 % (18.3-44.2); Mean Corpuscular HGB Conc 33.1 g/dl (32-36); Mean Corpuscular Hemoglobin 31.8 pg (26-34); Mean Corpuscular Volume 96.3 fl (80-100); Mean Platelet Volume 10.3 fl (7.4-10.4); Monocytes Absolute Auto 0.5 K/mm3 (0.1-0.6); Monocytes Percent Auto 12.2 % (2.6-8.5); Neutrophils Absolute Auto 2.7 K/mm3 (1.3-6.7); Neutrophils Percent Auto 61.4 % (45.5-73.1); Platelet Count Result 194 k/mm3 (150-375); Red Blood Count 3.77 M/mm3 (4.6-6.20); White Blood Count 4.4 K/mm3 (4.5-10.0)
[2024-04-01 06:14] LABS: Alanine Aminotransferase 11 U/L (6-50); Albumin Level 3.7 g/dL (3.5-5.1); Alkaline Phosphatase 33 U/L (38-126); Anion Gap 7 mmol/L (4-12); Aspartate Amino Transferase 22 U/L (17-59); Bilirubin,Total 1.3 mg/dL (0.2-1.3); Blood Urea Nitrogen 22 mg/dL (9-20); Calcium 9.8 mg/dL (8.4-10.2); Carbon Dioxide 26 mmol/L (22-30); Chloride 101 mmol/L (98-107); Estimated CRCL calculation 29 ml/min; Estimated Glomerular Filt Rate 36; Glucose 89 mg/dL (65-110); Sodium 134 mmol/L (137-145)
[2024-04-01 09:59] LABS: INR 1.3; Prothrombin Time 16.9 Seconds (11.1-14.7)
[2024-04-01] MEDS: MECLIZINE HCL 25 MG TABLET PO (10:01)
[2024-04-01] MEDS: OMEGA 3 POLYUNSAT FATTY ACIDS 1 GM CAP PO (10:01)
[2024-04-01] MEDS: FENOFIBRATE NANOCRYSTALLIZED 145 MG TABLET PO (10:01)
[2024-04-01] MEDS: polyethylene glycoL 3350 17 GM POWD.PACK PO (10:01)
[2024-04-01] MEDS: CHOLECALCIFEROL 1,000 UNITS TABLET 1000 UNITS PO (10:01)
[2024-04-01] MEDS: amLODIPine BESYLATE 5 MG TABLET PO (12:09)
--- NOTE | 2024-04-01 14:44 | WPDNEUROPN ---
Subjective Date/time seen: 04/01/24 14:44 Interval history: Acute dizziness and vertigo being treated symptomatic early in addition to the ongoing history of being on the anticoagulation therapy for atrial fibrillation and moderate aortic valve sclerosis as well INR has come down to 1.3 would obviously need to be restarted on anticoagulation therapy, hemoglobin is stable at 12.0, head neck CTA did not reveal any aneurysm or intracranial arterial stenosis or extracranial stenosis but the MRI of the brain suggested left cerebellar hyperintense signal seen in the medial aspect on the FLAIR weighted images. Patient is completely stable would like to go home I suggest continue the same medication and have a repeat MRI done as an outpatient in 4 to 6 weeks. Objective Data Vital Signs Vital Signs: Vital Signs - 24 hr 03/31/24 16:00 03/31/24 19:34 03/31/24 19:37 Temperature 36.9 C 36.7 C Pulse Rate 76 61 73 Respiratory Rate 18 18 Blood Pressure 90/45 L 91/49 L Pulse Oximetry 100 100 Oxygen Delivery Fraction of Inspired Oxygen 03/31/24 19:39 03/31/24 22:00 03/31/24 20:00 Temperature 36.7 C 36.9 C Pulse Rate 72 78 69 Respiratory Rate 18 18 Blood Pressure 105/58 L 110/54 L Pulse Oximetry 100 97 Oxygen Delivery Fraction of Inspired Oxygen 03/31/24 20:00 04/01/24 00:00 04/01/24 04:00 Temperature Pulse Rate 78 44 L 44 L Respiratory Rate 18 Blood Pressure Pulse Oximetry 97 Oxygen Delivery Room Air Fraction of Inspired Oxygen 21 04/01/24 05:59 04/01/24 09:55 04/01/24 10:00 Temperature 36.5 C Pulse Rate 72 80 Respiratory Rate 18 Blood Pressure 119/73 122/62 Pulse Oximetry 96 98 Oxygen Delivery Room Air Fraction of Inspired Oxygen 04/01/24 08:00 04/01/24 12:00 Temperature Pulse Rate 64 66 Respiratory Rate Blood Pressure Pulse Oximetry Oxygen Delivery Fraction of Inspired Oxygen Intake/Output Intake/Output: Intake & Output 03/29/24 03/30/24 03/31/24 04/01/24 23:59 23:59 23:59 23:59 Intake Total 1440 1910 1820 480 Output Total 449 920 8282 700 Balance 940 4842 -804 -220 Meds/Results Medications: Active Medications Generic Name Dose Route Start Last Admin Trade Name Freq PRN Reason Stop Dose Admin Acetaminophen 650 mg 03/29/24 14:47 Acetaminophen 325 Mg Tablet PO Q6H PRN Mild Pain (1-3) or Fever Amlodipine Besylate 5 mg 03/30/24 09:00 04/01/24 12:09 Amlodipine Besylate 5 Mg Tablet PO 5 mg DAILY LAUREN Administration Fenofibrate 145 mg 03/30/24 09:00 04/01/24 10:01 Fenofibrate Nanocrystallized 145 Mg Tablet PO 145 mg DAILY LAUREN Administration Fish Oil 1 gm 03/30/24 09:00 04/01/24 10:01 [place] 3 Polyunsat Fatty Acids 1 Gm Cap PO 1 gm DAILY LAUREN Administration Lisinopril 40 mg 03/30/24 09:00 04/01/24 10:59 Lisinopril 20 Mg Tablet PO Not Given DAILY [facility] Meclizine HCl 25 mg 03/29/24 14:49 04/01/24 10:01 Meclizine Hcl 25 Mg Tablet PO 25 mg TID PRN Administration Vertigo Polyethylene Glycol 17 gm 03/30/24 09:00 04/01/24 10:01 Polyethylene Glycol 3350 17 Gm Powd.Pack PO 17 gm DAILY [facility] Administration Vitamin D 1,000 units 03/30/24 09:00 04/01/24 10:01 Cholecalciferol 1,000 Units Tablet PO 1,000 units DAILY LAUREN Administration Warfarin Sodium 2 mg 04/01/24 17:00 Warfarin (*Pbkc) 2 Mg Tablet PO DAILY@1700 [facility] Radiology Results: ITS Impressions Head/Neck CTA 03/29/24 10:21 IMPRESSION: 1. Normal brain. 2. No aneurysm or significant intracranial arterial stenosis. 3. 0% stenosis of the proximal internal carotid arteries relative to normal distal artery lumen diameters (NASCET criteria). Brain MRI 03/31/24 08:50 IMPRESSION: 1. No acute intracranial process. 2. Left cerebellar hyperintense signal seen in the medial aspect on the FLAIR weighted images. Follow-up advised. 3. Mild brain atrophy. L
--- NOTE | 2024-04-01 16:16 | PM.DS ---
DS: Admitting Diagnosis Discharge Date 04/01/24 Admitting Diagnosis Vertigo Atrial fibrillation Supratherapeutic INR Chronic anticoagulation Diastolic dysfunction Hyperlipidemia Chronic kidney disease stage IIIB COPD Hypertension DS: Discharge Diagnosis Discharge Diagnosis (1) Vertigo: Code(s): R42 - Dizziness and giddiness Status: Acute (2) Supratherapeutic INR: Code(s): R79.1 - Abnormal coagulation profile Status: Acute (3) Atrial fibrillation: Code(s): I48.91 - Unspecified atrial fibrillation Status: Chronic (4) Hyperlipidemia: Code(s): E78.5 - Hyperlipidemia, unspecified Status: Chronic (5) Hypertension: Code(s): I10 - Essential (primary) hypertension Status: Chronic DS: Summary Hospital Course Reason for hospitalization: Vertigo Atrial fibrillation Supratherapeutic INR Chronic anticoagulation Diastolic dysfunction Hyperlipidemia Chronic kidney disease stage IIIB COPD Hypertension Hospital Course: This is an 84-year-old male who presented to the hospital on 03/29/2024 for evaluation of dizziness. He was recently diagnosed with atrial fibrillation and was started on Coumadin on 02/1924. Workup in the hospital included a head and neck CTA which showed a normal brain, no aneurysm or significant intracranial arterial stenosis, 0% stenosis of the proximal internal carotid arteries. Initial labs shown a white blood cell count of 4.3, RBC 4.17, hemoglobin 13.0, INR 7.9, PT 65.9, creatinine 1.6, EGFR 41, alk-phos 37, troponin negative x2. Last echo on 03/19/2024 was reviewed and revealed normal LV systolic function with an estimated EF of 60-65%, diastolic dysfunction, moderate aortic valve sclerosis. EKG yesterday showed AFib with a rate of 62 and right bundle branch block, QTC 397. Patient was given a dose of meclizine in the ED. Patient was given a dose of vitamin K for his supratherapeutic INR and INR is down to 1.3 today. We did talk with Dr. Carvalho his cytology laboratory manager to recommends putting him on Coumadin 1 mg daily for the next week and then have him recheck labs and follow up with his office in 1 week. He was also found to have low blood pressure with taking his lisinopril and his amlodipine. We held his lisinopril at this time and only has been given him the amlodipine which seems to keep him well controlled. He will follow up with his primary care in 1 week for his blood pressure. He was also started on meclizine for the vertigo and seems to be tolerating this well. He denies any dizziness or lightheadedness at this time. PT and OT evaluated him while inpatient stated that he is standby assist for all activity and was able to ambulate a distance 250 ft and the [place]. Patient is stable for discharge at this time. He will need to follow up with Neurology in 4-6 weeks after obtaining a MRI of the brain/ brainstem without contrast. Final diagnosis: Vertigo, moderate aortic valve sclerosis, hypercoagulability Status at Discharge Cognitive/behavioral status at discharge: Alert oriented x4 Functional status at discharge: independent ambulation Overall status at discharge: patient is progressing back to baseline Time Spent with Patient Time attestation: Total time spent providing and/or coordinating discharge services: Time spent: Greater than 30 minutes Exam Narrative: General: In no acute distress, well nourished Cardiac: Normal S1 and S2. RRR, No murmur, gallops or friction rubs, peripheral pulses intact. Respiratory: Lungs clear to auscultation, no adventitious lung sounds, currently on room air Gastrointestinal: soft, non-distended, non-tender, normoactive bowel sounds. : voiding without difficulty. Neuro: Alert and oriented x4 DS: Data Data Completed and Pending Completed studies during hospitalization: Head and neck CTA Brain MRI Pending studies at discharge: None Labs on day of discharge: Labs from last 24 hours 04/01/24 09
--- NOTE | 2024-04-01 16:52 | PCCCNOTE ---
[facility] voucher provider as requested for transportation home. Nurse stated she was unable to reach her son whom was the original plan when discharging home.
[2024-04-01] MEDS: WARFARIN (*PBKC) 2 MG TABLET PO (16:55)
== END 2024-04-01 17:13 | disposition home or self-care (01) ==
LOC: ANHED 09:35 → ANH2MED 14:50
PROVIDERS: Nurse Practitioner Acute Care; Physician Assistant; Admitting Provider Internal Medicine; Emergency Provider Student in an Organized Health Care Education/Training Program; PCP Internal Medicine; Visit Provider General Practice
DX: R42 Dizziness and giddiness (principal); I48.91 Unspecified atrial fibrillation; R79.1 Abnormal coagulation profile; J44.9 Chronic obstructive pulmonary disease, unspecified; I35.8 Other nonrheumatic aortic valve disorders; E78.5 Hyperlipidemia, unspecified; I13.10 Hypertensive heart and chronic kidney disease without heart failure, with stage 1 through stage 4 chronic kidney disease, or unspecified chronic kidney disease; N18.32 Chronic kidney disease, stage 3b; K58.9 Irritable bowel syndrome, unspecified; Z79.01 Long term (current) use of anticoagulants; Z87.891 Personal history of nicotine dependence
CPT/HCPCS: 36415; 70496; 70498; 70551; 80048; 80053; 83735; 84484; 85025; 85610; 93005; 96360; 96361; 97110; 97116; 97161; 99285; A9270; G0378; J7120; Q9967

== ENCOUNTER 2024-04-07 09:26 | Outpatient (CLI) | payer OTHER, SELFPAY ==
[2024-04-07 10:02] LABS: INR 2.8; Prothrombin Time 29.7 Seconds (11.1-14.7)
== END 2024-04-07 09:27 | disposition home or self-care (01) ==
PROVIDERS: PCP Internal Medicine; Visit Provider Nurse Practitioner Acute Care
DX: I48.91 Unspecified atrial fibrillation (principal); Z79.01 Long term (current) use of anticoagulants
CPT/HCPCS: 36415; 85610